=== PATIENT | male | born 2000 | race Caucasian/White ===

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

== ENCOUNTER 2018-02-08 20:52 | Emergency (ER) | payer OTHER ==
[2018-02-08 21:03] VITALS: BP 141/73
--- NOTE | 2018-02-08 21:32 | UC ---
Lower Extremity/Ankle HPI - HPI Summary HPI Summary: states his left foot hit his bed as he was jumping out of it and currently he has pain on the base of his fifth toe. He can ambulate. Has been icing and elevating foot. Denies numbness or tingling. 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 to make sure there is no fracture - History of Current Complaint Chief Complaint: UCLowerExtremity Stated Complaint: L FOOT INJURY Time Seen by Provider: 02/08/18 20:58 Hx Obtained From: Patient Onset/Duration: Sudden Onset, Lasting Hours Severity Initially: Mild Severity Currently: Moderate Pain Intensity: 7 Aggravating Factor(s): Standing, Ambulation Alleviating Factor(s): Rest, Elevation - Allergies/Home Medications Allergies/Adverse Reactions: Allergies Allergy/AdvReac Type Severity Reaction Status Date / Time No Known Allergies Allergy Verified 02/08/18 21:03 PMH/Surg Hx/FS Hx/Imm Hx Previously Healthy: Yes - Surgical History Surgical History: Yes Surgery Procedure, Year, and Place: 2011 TONSILLECTOMY,[facility]. RIGHT HAND-4TH DIGIT FX [facility]. LEFT KNEE ARTHROSCOPY- [facility] - Social History Alcohol Use: None Substance Use Type: None Smoking Status (MU): Never Smoked Tobacco Have You Smoked in the Last Year: No - Immunization History Most Recent Influenza Vaccination: 08/12/2014 Most Recent Pneumonia Vaccination: not needed Review of Systems Constitutional: Negative Musculoskeletal: Arthralgia All Other Systems Reviewed And Are Negative: Yes Physical Exam Triage Information Reviewed: Yes Appearance: Well-Appearing, No Pain Distress, Well-Nourished Vital Signs: Initial Vital Signs Temp 98.2 F 02/08/18 21:00 Pulse 63 02/08/18 21:00 Resp 18 02/08/18 21:00 BP 141/73 02/08/18 21:00 Pulse Ox 99 02/08/18 21:00 Vital Signs Reviewed: Yes Eyes: Positive: Conjunctiva Clear ENT: Positive: Hearing grossly normal Neck: Positive: Supple Respiratory: Positive: No respiratory distress Cardiovascular: Positive: Pulses Normal, Brisk Capillary Refill Musculoskeletal Exam: Other - tender along plantar surface overlying distal aspect 5th metatarsal bone left foot Lower Extremity Course/Dx - Course Course Of Treatment: xray shows no fracture, continue RICE, ibuprofen - Differential Dx/Diagnosis Provider Diagnoses: foot sprain Discharge - Sign-Out/Discharge Documenting (check all that apply): Discharge/Admit/Transfer - Discharge Plan Condition: Good Disposition: HOME Patient Education Materials: Foot Sprain (ED), Ibuprofen (By mouth) Referrals: Shelby Rocha NP [Primary Care Provider] - - Billing Disposition and Condition Condition: GOOD Disposition: HOME
--- NOTE | 2018-02-08 21:37 | RAD ---
Indication: Left foot pain. 3 views of left foot demonstrates no fracture. No other bone or joint abnormality is noted. IMPRESSION: No fracture of the left foot is noted.
== END 2018-02-08 21:55 | disposition home or self-care (01) ==
LOC: UCEAST 20:52
DX: S93.602A Unspecified sprain of left foot, initial encounter (principal); W22.03XA Walked into furniture, initial encounter; Y93.89 Activity, other specified; Y92.003 Bedroom of unspecified non-institutional (private) residence as the place of occurrence of the external cause
CPT/HCPCS: 99211; G0463

== ENCOUNTER 2018-09-07 08:22 | Emergency (ER) | payer OTHER ==
--- NOTE | 2018-09-07 08:40 | ED ---
Abdominal Pain/Male - HPI Summary HPI Summary: This patient is a 18 year old M presenting [place] [facility] [place] by his mother with a chief complaint of left sided, achy, cramping abdominal pain since a few months ago. Symptoms aggravated by eating at nighttime. Patient reports nausea, vomiting, and gas. Patient denies diarrhea. The patients gift basket packer thinks it may have something to do with his gallbladder. If he eats something spicy or junk food, he gets very gassy and vomits, particularly before bed. The vomit usually looks yellow. The last time he had these symptoms was on gi night, until last night. The patient is not in any pain while in the ED, and claims that this happens only at night. The location of the pain is always in the same place, it doesnt move around his abdomen. PMHX 2 knee surgeries, 2 tonsil surgeries, a finger surgery. No SHX EtOH use, tobacco use. FHX HTN. - History of Current Complaint Chief Complaint: EDAbdPain Stated Complaint: ABD PAIN/VOMITING Time Seen by Provider: 09/07/18 08:34 Hx Obtained From: Patient, Family/Audiology Assistant - mother Onset/Duration: Gradual Onset, Lasting Weeks, Resolved Timing: Lasting Seconds Severity Currently: None Pain Intensity: 0 Pain Scale Used: 0-10 Numeric Location: Other - left sided Character: Cramping Aggravating Factor(s): Food Associated Signs And Symptoms: Positive: Nausea, Vomiting - Allergies/Home Medications Allergies/Adverse Reactions: Allergies Allergy/AdvReac Type Severity Reaction Status Date / Time No Known Allergies Allergy Verified 09/07/18 08:33 PMH/Surg Hx/FS Hx/Imm Hx Cardiovascular History: Denies: Hx Pacemaker/ICD Respiratory History: Reports: Hx Asthma - WITH COLD'S GI History: Reports: Other GI Disorders - LOW PROTEIN DIET D/T PKU Sensory History: Reports: Hx Contacts or Glasses - INSTRUCTS GIVEN Denies: Hx Hearing Aid Opthamlomology History: Reports: Hx Contacts or Glasses - INSTRUCTS GIVEN Neurological History: Reports: Other Neuro Impairments/Disorders - PKU Psychiatric History: Denies: Hx Panic Disorder - Surgical History Surgery Procedure, Year, and Place: 2011 [facility]ONSILLECTOMY,[facility]. RIGHT HAND-4TH DIGIT FX [facility]. [place] [facility] [place] Anesthesia Reactions: Yes - 2012- BACK PAIN Infectious Disease History: No Infectious Disease History: Denies: Traveled Outside the [place] in Last 30 Days - Family History Known Family History: Positive: Hypertension - Social History Alcohol Use: None Hx Substance Use: No Substance Use Type: Reports: None Hx Tobacco Use: No Smoking Status (MU): Never Smoked Tobacco Have You Smoked in the Last Year: No Review of Systems Gastrointestinal: Other - gas Positive: Abdominal Pain, Vomiting, Nausea. Negative: Diarrhea Negative: Other - pain All Other Systems Reviewed And Are Negative: Yes Physical Exam - Summary Physical Exam Summary: VITAL SIGNS: Reviewed. GENERAL: Patient is a well-developed and nourished male who is lying comfortable in the stretcher. Patient is not in any acute respiratory distress. HEAD AND FACE: Normocephalic and atraumatic. EYES: PERRLA, EOMI x 2, No injected conjunctiva. EARS: Hearing grossly intact. Ear canals and tympanic membranes are WNL. MOUTH: Oropharynx within normal limits. NECK: Supple, trachea is midline, no adenopathy, no JVD. CHEST: Symmetric, no tenderness at palpation LUNGS: Clear to auscultation bilaterally. No wheezing or crackles. CVS: RRR, S1 and S2 present, no murmurs or gallops appreciated. ABDOMEN: Soft, non-tender. No signs of distention. Positive bowel sounds. No rebound no guarding, and no masses palpated. No abdominal bruit or pulsations. EXTREMITIES: FROM in all major joints, no edema, no cyanosis or clubbing. NEURO: Alert and oriented x 3. No acute neurological deficits. Speech is normal. SKIN: Dry and warm Triage Information Reviewed: Yes Vital Signs On Initial Exam: Initial Vitals Temp Pulse Resp BP Pulse Ox 99.2 F 62 14 125/79 98 09/07/18 08:28 09/07/18 08:28 12 08:28 09/07/18 08:28 12 08:28 Vital Signs Reviewed: Yes Diagnostics - Vital Signs Vital Signs Temp Pulse Resp BP Pulse Ox 09/07/18 08:28 99.2 F 62 14 125/79 98 - Laboratory Result Diagrams: 09/07/18 09:24 09/07/18 09:24 Lab Statement: Any lab studies that have been ordered have been reviewed, and results considered in the medical decision making process. - Radiology Abd X Ray Radiology Interpretation Completed By: Radiologist Summary of Radiographic Findings: Normal abdominal radiograph. ED physician has reviewed this report Abdominal Pain Fem Course/Dx - Course Assessment/Plan: This patient is a 18 year old M presenting to [facility] accompanied by his mother with a chief complaint of left sided, achy, cramping abdominal pain since a few months ago. Symptoms aggravated by eating at nighttime. Patient reports nausea, vomiting, and gas. Patient denies diarrhea. The patients gift basket packer thinks it may have something to do with his gallbladder. If he eats something spicy or junk food, he gets very gassy and vomits, particularly before bed. The vomit usually looks yellow. The last time he had these symptoms was on night, until last night. The patient is not in any pain while in the ED, and claims that this happens only at night. The location of the pain is always in the same place, it doesnt move around his abdomen. PMHX 2 knee surgeries, 2 tonsil surgeries, a finger surgery. No SHX EtOH use, tobacco use. FHX HTN. Blood work without any significant abnormality. The patient does have any abdominal tenderness except for the nausea. Therefore the ED course the patient was given IV fluids and Zofran for nausea and vomiting. X-ray of the abdomen shows no acute pathology. After the Zofran the patient is able to tolerate PO. Since the patient is having any nausea vomiting the patient will be discharged home with follow-up with gift basket packer. The patient will be given a prescription for Zofran. I discussed all the findings and test results with the patient. Patient was instructed to return to the emergency room immediately if any of the symptoms return or worsens. Plan of care was discussed with the patient and understands and agrees. All questions were answered at patient satisfaction. There were no further complaints or concerns. Lung exam before discharge: CTA B/L. Good air exchange. No wheezing or crackles heard. CVS: S1 and S2 present. No murmurs appreciated. Patient is alert and oriented x 3. Patient is hemodynamically stable. Patient will be discharged home with follow up PCP in the next 2-3 days - Diagnoses Differential Diagnosis/HQI/PQRI: Constipation, Other - Gastritis, gastroenteritis, GERD Provider Diagnoses: Nausea & vomiting Discharge - Sign-Out/Discharge Documenting (check all that apply): Patient Departure - discharge - Discharge Plan Condition: Stable Disposition: HOME Prescriptions: Ondansetron TAB* [Zofran 4 MG Tab*] 4 mg PO Q6H PRN #10 tab PRN Reason: Vomiting Patient Education Materials: Acute Nausea and Vomiting (ED) Referrals: Shelby Rocha AUTOMATIC COIN MACHINE MECHANIC [Primary Care Provider] - 3 Days Additional Instructions: RETURN TO THE EMERGENCY DEPARTMENT FOR NEW OR WORSENING SYMPTOMS - Billing Disposition and Condition Condition: STABLE Disposition: Home - Attestation Statements Document Initiated by Gabrielleibe: Yes Documenting Scribe: Roger Tiwari Provider For Whom Dionne is Documenting (Include Credential): Patrick Love MD Scribe Attestation: Roger Askew, scribed for Patrick Love MD on 09/07/18 at 1813. Scribe Documentation Reviewed: Yes Provider Attestation: The documentation as recorded by the Roger zabala accurately reflects the service I personally performed and the decisions made by me, Patrick Love MD Status of Scribe Document: Viewed
[2018-09-07] MEDS ORDERED: NS 0.9% 1000 ML* 1,000 ML IV ONE (08:43)
[2018-09-07] MEDS ORDERED: Ondansetron INJ* 2 MG/ML VIAL IV ONE (08:43)
[2018-09-07] MEDS ORDERED: Famotidine IV* 10 MG/ML 2 ML (20 mg) IV ONE (08:43)
[2018-09-07 09:32] LABS: ABS Basophils 0 10^3/ul (0-0.2); ABS Eosinophils 0.1 10^3/ul (0-0.6); ABS Lymphocytes 1.2 10^3/ul (1.0-4.8); ABS Monocytes 0.6 10^3/ul (0-0.8); ABS Neutrophils 7.1 10^3/ul (1.5-7.7); ABS Nucleated RBC 0 10^3/ul; Eosinophil % 0.7 %; Hematocrit 46 % (42-52); Hemoglobin 15.8 g/dl (14.0-18.0); Lymphocyte % 13.2 %; Mean Corpuscular HGB Conc 35 g/dl (31-36); Mean Corpuscular Hemoglobin 31 pg (27-31); Mean Corpuscular Volume 89 fL (80-94); Nucleated Red Blood Cells % 0; Platelet Count 252 10^3/ul (150-450); Red Blood Count 5.15 10^6/ul (4.00-5.40); Red Cell Distribution Width 13 % (10.5-15)
[2018-09-07 09:56] LABS: EGFR Non-African American 81.9 (>60)
[2018-09-07 10:55] LABS: Urine Appearance Clear; Urine Blood Negative (Negative); Urine Color Yellow; Urine Ketones Trace (Negative); Urine Protein 1+(30 mg/dL) (Negative); Urine Red Blood Cell Trace(0-2/hpf) (Absent); Urine Specific Gravity 1.024 (1.010-1.030); Urine Urobilinogen Negative (Negative); Urine White Blood Cell Absent (Absent)
[2018-09-07 11:16] VITALS: BP 126/76
== END 2018-09-07 11:16 | disposition home or self-care (01) ==
LOC: ED 08:22
DX: R11.2 Nausea with vomiting, unspecified (principal)
CPT/HCPCS: 36415; 74019; 80053; 81003; 81015; 82150; 83605; 83690; 85025; 86140; 96361; 96374; 96375; 99282; J2405